=== PATIENT | male | born 1955 | race Caucasian/White ===

== ENCOUNTER 2020-07-21 15:17 | Outpatient (REF) | payer OTHER, SELFPAY | END 2020-07-21 15:18 | disposition home or self-care (01) | LOC: HO.LAB 15:17 | PROVIDERS: PCP Internal Medicine; Visit Provider Internal Medicine | DX: Z20.828 Contact with and (suspected) exposure to other viral communicable diseases (principal) | CPT/HCPCS: C9803; U0003 ==

== ENCOUNTER 2020-09-01 15:03 | Outpatient (REF) | payer OTHER, SELFPAY | END 2020-09-01 15:04 | disposition home or self-care (01) | LOC: HO.LAB 15:03 | PROVIDERS: PCP Internal Medicine; Visit Provider Internal Medicine | DX: Z20.828 Contact with and (suspected) exposure to other viral communicable diseases (principal) | CPT/HCPCS: C9803; U0003 ==

== ENCOUNTER 2023-12-28 13:06 | Outpatient (AMB) | payer MEDICARE, SELFPAY ==
--- NOTE | 2023-12-28 09:53 | MHC.PC.OV ---
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 Requesting colonoscopy, its been over 10 years, also needs a Event Representative for spot on forehead Heel Seat Flap Stapler Required: No Allergies Sulfa (Sulfonamide Antibiotics) Allergy (Intermediate, Verified 12/28/23 13:18) Rash Tobacco use date assessed: 12/28/23 Fall risk assessment: No Falls in past year Dental Screening Dental Screen Date: 12/28/23 Did you have a dental visit in the last 12 months?: Yes Did you have a dental problem in the last 6 months where you did not have access to dental care?: No Was dental information given to patient?: Patient has dentist HPI HPI Comments History of Present Illness Details The patient is a 68 year old male with a past medical history of asthma, allergies, sinusitis presenting to reestablish care Resp: Asthma well afirrmbsmc-akspmilkhhe-tqcyniiotn 100/50 and albuteron prn. Allergies/sinusitis-on zyrtec BPH: On tamsulosin 0.4 cap. Last PSA 3.4. Symptoms good controlled on medication Preventive PFSH Social History (Updated 12/28/23 @ 13:29 by Arlet Feliciano [facility]) Housing: House Patient Tobacco Use Status: Former Tobacco user Cigarette Packs Per Day: 0.5 Years Smoked: 5 in his 20's e-Cigarette/Vaping Use: Never Used Second Hand Smoke Exposure: No Current occupational status: retired and disabled Cognitive needs: No Hearing needs: No Vision needs: Yes (glasses) Questionnaire PHQ-9 Over the last 2 weeks, how often have you been bothered by any of the following problems? 1. Little interest or pleasure in doing things: not at all 2. Feeling down, depressed, or hopeless: not at all 3. Trouble falling or staying asleep, or sleeping too much: not at all 4. Feeling tired or having little energy: not at all 5. Poor appetite or overeating: not at all 6. Feeling bad about yourself - or that you are a failure or have let yourself or your family down: not at all 7. Trouble concentrating on things, such as reading the newspaper or watching television: not at all 8. Moving or speaking so slowly that other people could have noticed. Or the opposite - being so fidgety or restless that you have been moving around a lot more than usual: not at all 9. Thoughts that you would be better off or of hurting yourself in some way: not at all Total score: 0 Depression Screening Interpretation: Negative Depression Screening Done: Yes 19630 - PHQ-9 Billing: Yes Source: Developed by Drs. Lucien Maravilla, Karen Chavarria, Michele Augustine and colleagues, with an educational meena from [employer]. Thrive Questionnaire Date Thrive assessed: 12/28/23 I am a: Patient What is your living situation today?: I have a steady place to live Within the past 12 months, did the food you bought not last and you didn't have the money to get more?: Never true Within the past 12 months, did you worry whether your food would run out before you got money to buy more?: Never true Do you have trouble paying for medicines?: No Do you have trouble getting transportation to medical appointments?: No Do you have trouble paying your heating and electricity bill?: No Do you have trouble taking care of your child, family member or friend?: No Do you have trouble with day-to-day activities such as bathing, preparing meals, shopping, managing finances, etc.?: No Are you currently unemployed and looking for a job?: No Are you interested in more education?: No Please select the resources that you would like help with: None Currently or been in a relationship where the following occur: no concerns reported THRIVE Score: 0 AUDIT C Alcohol Use Questionnaire (AUDIT-C) 1. How often do you have a drink containing alcohol?: Never 3. How often do you have six or more drinks on one occasion?: Never Total Score: 0 IMER-7 AMB Questionnaire IMER-7 Date IMER - 7 assessed: 12/28/23 Feeling nervous, anxious, or on edge: 0 = Not at all Not being able to stop or control worryin = Not at all Worrying too much about different things: 0 = Not at all Trouble relaxin = Not at all Being so restless that it is hard to sit still: 0 = Not at all Becoming easily annoyed or irritable: 0 = Not at all Feeling afraid as if something awful might happen: 0 = Not at all Total IMER-7 score (0-4 normal; 5-9 mild; 10-14 moderate; 15-21 severe): 0 Source: Developed by Drs. Lucien Maravilla, Karen Chavarria, Michele Augustine and colleagues, with an educational meena from [employer]. IMER-7 Assessment Billing IMER-7 Assessment Tool: IMER-7 Assessment 67414 ACT Questionnaire In the past 4 weeks, how much of the time did your asthma keep you from getting as much done at work, school or at home?: None of the time During the past 4 weeks, how often have you had shortness of breath?: Not at all During the past 4 weeks, how often did your asthma symptoms wake you up at night or earlier than usual in the morning?: Not at all During the past 4 weeks, how often have you had to use your rescue inhaler or nebulizer medication?: Once a week or less How would you rate your asthma control during the past 4 weeks?: Well controlled ACT Interpretation: Positive Score: 23 Review of Systems Const Details: ROS CONSTITUTIONAL: Denies weight loss, fever and chills. HEENT: Denies changes in vision and hearing. RESPIRATORY: Denies SOB and cough. CV: Denies palpitations and CP GI: Denies abdominal pain, nausea, vomiting and diarrhea. : Denies dysuria and urinary frequency. MSK: Denies new myalgia and joint pain. SKIN: see HPI NEUROLOGICAL: Denies headache PSYCHIATRIC: Denies recent changes in mood. Physical exam (Primary Care) Vital Signs: Last Vital Signs Temp 98.2 F 12/28/23 13:30 Pulse 78 12/28/23 13:30 Resp 14 12/28/23 13:30 BP 116/76 12/28/23 13:30 Pulse Ox 98 12/28/23 13:30 Oxygen Delivery Method Room Air 12/28/23 13:30 PHYSICAL EXAM: GENERAL: Alert and oriented x 3. NAD EYES: EOMI. Anicteric. HENT: Moist mucous membranes. No scleral icterus. No cervical lymphadenopathy. LUNGS: Clear to auscultation bilaterally. CARDIOVASCULAR: Regular rate and rhythm. No murmur. No JVD. ABDOMEN: Soft, non-tender +bs EXTREMITIES: No edema. Non-tender. SKIN: 2 SK lesions frontal scalp NEUROLOGIC: No focal neurological deficits. CN II-XII grossly intact PSYCHIATRIC: Cooperative. Appropriate mood and affect BMI result Body Mass Index 26.9 Depression Screening Interpretation: Negative Currently or been in a relationship where the following occur: no concerns reported Assessment and Plan Assessment & Plan (1) BPH (benign prostatic hyperplasia): Code(s): N40.0 - Benign prostatic hyperplasia without lower urinary tract symptoms Qualifiers: Lower urinary tract symptom presence: unspecified whether lower urinary tract symptoms present Qualified Code(s): N40.0 - Benign prostatic hyperplasia without lower urinary tract symptoms (2) Asthma: Comment: well controlled with spare use of as needed inhaler Code(s): J45.909 - Unspecified asthma, uncomplicated Qualifiers: Asthma complication type: uncomplicated Asthma persistence: persistent Asthma severity: moderate Qualified Code(s): J45.40 - Moderate persistent asthma, uncomplicated (3) Allergic rhinitis: Code(s): J30.9 - Allergic rhinitis, unspecified Qualifiers: Allergic rhinitis seasonality: seasonal Allergic rhinitis trigger: pollen Qualified Code(s): J30.1 - Allergic rhinitis due to pollen (4) Impaired fasting glucose: Comment: check A1C Code(s): R73.01 - Impaired fasting glucose Orders: Orders Complete Blood Count Auto Diff Today N40.0 - Benign prostatic hyperplasia without lower urinary tract symptoms, R73.01 - Impaired fasting glucose, Z13.0 - Encounter for screening for diseases of the blood and blood-forming organs and certain disorders involving the immune mechanism, Z13.220 - Encounter for screening for lipoid disorders, Z13.228 - Encounter for screening for other metabolic disorders Prostate Specific Antigen Today N40.0 - Benign prostatic hyperplasia without lower urinary tract symptoms, R73.01 - Impaired fasting glucose, Z13.0 - Encounter for screening for diseases of the blood and blood-forming organs and certain disorders involving the immune mechanism, Z13.220 - Encounter for screening for lipoid disorders, Z13.228 - Encounter for screening for other metabolic disorders Comprehensive Met. Panel Today N40.0 - Benign prostatic hyperplasia without lower urinary tract symptoms, R73.01 - Impaired fasting glucose, Z13.0 - Encounter for screening for diseases of the blood and blood-forming organs and certain disorders involving the immune mechanism, Z13.220 - Encounter for screening for lipoid disorders, Z13.228 - Encounter for screening for other metabolic disorders Lipid Panel Today N40.0 - Benign prostatic hyperplasia without lower urinary tract symptoms, R73.01 - Impaired fasting glucose, Z13.0 - Encounter for screening for diseases of the blood and blood-forming organs and certain disorders involving the immune mechanism, Z13.220 - Encounter for screening for lipoid disorders, Z13.228 - Encounter for screening for other metabolic disorders Referrals Gastroenterology Referral Z12.11 - Encounter for screening for malignant neoplasm of colon Dermatology Referral L98.9 - Disorder of the skin and subcutaneous tissue, unspecified Medications: New tamsulosin 0.4 mg PO DAILY 90 caps 3RF Coding Level of Care Code Est Pt Level 4 (83644) Complex EM visit Add On G2211 Diagnoses Benign prostatic hyperplasia, unspecified whether lower urinary tract symptoms present N40.0 Lower urinary tract symptom presence: unspecified whether lower urinary tract symptoms present Moderate persistent asthma without complication J45.40 Asthma complication type: uncomplicated Asthma persistence: persistent Asthma severity: moderate Seasonal allergic rhinitis due to pollen J30.1 Allergic rhinitis seasonality: seasonal Allergic rhinitis trigger: pollen Impaired fasting glucose R73.01 Additional Codes IMER-7 Assessment Billing - IMER-7 Assessment Tool: IMER-7 Assessment [id number] ([id number]) Time Spent (min) 38
[2023-12-28 13:30] VITALS: BP 116/76; PULSE 78; RESP 14; TEMP 36.8; O2SAT 98; BMI 26.9
== END 2023-12-28 14:38 | disposition home or self-care (01) ==
PROVIDERS: PCP Internal Medicine; Visit Provider Internal Medicine
DX: N40.0 Benign prostatic hyperplasia without lower urinary tract symptoms (principal); J45.40 Moderate persistent asthma, uncomplicated; J30.1 Allergic rhinitis due to pollen; R73.01 Impaired fasting glucose
CPT/HCPCS: 99214; G2211

== ENCOUNTER 2024-01-02 07:10 | Outpatient (REF) | payer MEDICARE, SELFPAY ==
[2024-01-02 11:32] LABS: MANUAL DIFF FLAG NO
[2024-01-02 11:40] LABS: Basophils Percent Auto 0.6 % (0-2); Eosinophils Percent Auto 4.6 % (0-4); Hematocrit 40.1 % (42.0-52.0); Hemoglobin 13.7 g/dl (14.0-18.0); Mean Corpuscular HGB Conc 34.2 g/dl (31.0-36.0); Mean Corpuscular Hemoglobin 31.9 pg (27.0-33.0); Mean Corpuscular Volume 93.3 fL (80.0-98.0); Mean Platelet Volume 10.4 fL (9.4-12.4); Platelet Count 265 X10*3/uL (160-400); Red Cell Distribution Width 13.4 % (11.0-16.0); White Blood Count 6.3 X10*3/uL (4.8-10.8)
[2024-01-02 12:13] LABS: Alanine Aminotransferase 26 U/L (0-40); Albumin Level 4.2 g/dL (3.5-5.0); Alkaline Phosphatase 55 U/L (39-117); Anion Gap 12 (12-20); Aspartate Amino Transferase 27 U/L (5-37); Bilirubin Total 0.6 mg/dL (0.0-1.0); Blood Urea Nitrogen 20 mg/dL (9-16); Calcium 9.4 mg/dL (8.4-10.2); Carbon Dioxide 26 mmol/L (22-29); Chloride 108 mmol/L (96-108); Cholesterol 188 mg/dL (<200); Estimated Glomerular Filt Rate > 60; Glucose Random 98 mg/dL (60-115); HDL Cholesterol 46 mg/dL (>40); LDL Cholesterol Calculated 123 mg/dL (<100); Potassium 4.1 mmol/L (3.3-5.1); Sodium 142 mmol/L (135-145); Total Protein 6.8 g/dL (6.5-8.0); Triglycerides 98 mg/dL (<150)
[2024-01-02 12:31] LABS: Prostate Specific Antigen 3.28 ng/mL (<0.05-4.0)
== END 2024-01-02 07:11 | disposition home or self-care (01) ==
LOC: HO.WFDLDS 07:10
PROVIDERS: Visit Provider Internal Medicine
DX: Z13.0 Encounter for screening for diseases of the blood and blood-forming organs and certain disorders involving the immune mechanism (principal); Z13.228 Encounter for screening for other metabolic disorders; R73.01 Impaired fasting glucose; Z13.220 Encounter for screening for lipoid disorders; N40.0 Benign prostatic hyperplasia without lower urinary tract symptoms; Z12.5 Encounter for screening for malignant neoplasm of prostate
CPT/HCPCS: 36415; 80053; 80061; 84153; 85025

== ENCOUNTER 2025-02-16 09:41 | Outpatient (AMB) | payer MEDICARE, SELFPAY ==
--- NOTE | 2025-02-16 09:49 | AM.OFFVISMDC ---
Intake Vital Signs 02/16/25 09:54 Height 5 ft 9 in Weight 180 lb 4 oz BMI 26.6 BP 122/84 Blood Pressure Location Rt brachial Position Sitting Respiration 12 Pulse 73 Pulse Source Pulse Oximeter Temp 97.9 F Temp Source Oral Pulse Oximetry (%) 96 Oxygen Delivery Method Room Air Intake Visit Reasons: CPE Intake Note: Medical wellness visit Grid Operator Required: No Allergies Sulfa (Sulfonamide Antibiotics) Allergy (Intermediate, Verified 02/16/25 09:49) Rash HPI HPI Comments History of Present Illness Details The patient is a 69 year old male with a past medical history of asthma, allergies, sinusitis presenting for MWV Resp: Asthma well uynlbgdrwb-hvxjhdwrsfl-vsdsauzcwl 100/50 and albuterol prn. Allergies/sinusitis-on zyrtec BPH: On tamsulosin 0.4 cap. Last PSA wnl. Symptoms good controlled on medication Follows with Dermatology [place]. Preventive colonoscopy 04/17/2024 [facility] polyp 5 years HRA reviewed No specialists ROS CONSTITUTIONAL: Denies weight loss, fever and chills. HEENT: Denies changes in vision and hearing. RESPIRATORY: Denies SOB and cough. CV: Denies palpitations and CP GI: Denies abdominal pain, nausea, vomiting and diarrhea. : Denies dysuria and urinary frequency. MSK: Denies new myalgia and joint pain. SKIN: Denies rash and pruritus. NEUROLOGICAL: Denies headache PSYCHIATRIC: Denies recent changes in mood. PHYSICAL EXAM: GENERAL: Alert and oriented x 3. NAD EYES: EOMI. Anicteric. HENT: Moist mucous membranes. No scleral icterus. No cervical lymphadenopathy. LUNGS: Clear to auscultation bilaterally. CARDIOVASCULAR: Regular rate and rhythm. No murmur. No JVD. ABDOMEN: Soft, non-tender +bs EXTREMITIES: No edema. Non-tender. SKIN: No rashes or lesions. Warm. NEUROLOGIC: No focal neurological deficits. CN II-XII grossly intact PSYCHIATRIC: Cooperative. Appropriate mood and affect PFSH Surgical History Hx of cholecystectomy Family History Mother HTN (hypertension) Breast cancer Maternal Grandmother Diabetes Social History Housing: House Alcohol intake: current Patient Tobacco Use Status: Former Tobacco user Cigarette Packs Per Day: 0.5 Years Smoked: 5 in his 20's e-Cigarette/Vaping Use: Never Used Second Hand Smoke Exposure: No Use of substances other than those prescribed or required for medical reasons: No Current occupational status: retired and disabled Cognitive needs: No Hearing needs: No Vision needs: Yes (glasses) Questionnaire Medicare Wellness Checkup [age] 65-70 What gender do you identify with?: male During the past 4 weeks, how much have you been bothered by emotional problems such as feeling anxious, depressed, irritable, sad or downhearted, and blue?: not at all During the past 4 weeks, has your physical & emotional health limited your social activities with family, friends, neighbors, or groups?: not at all During the past 4 weeks, how much bodily pain have you generally had?: no pain During the past 4 weeks, was someone available to help you if you needed & wanted help?: yes, as much as I wanted During the past 4 weeks, what was the hardest physical activity you could do for at least 2 minutes?: very heavy Can you get to places out of walking distance without help? (For eg., can you travel alone on buses, taxis or drive your car?): Yes Can you go shopping for groceries or clothes without someone's help?: Yes Can you prepare your own meals?: Yes Can you do your housework without help?: Yes Because of any health problems, do you need the help of another person with your personal care needs such as eating, bathing, dressing or getting around the house?: Yes Can you handle your own money without help?: Yes During the past 4 weeks, how would you rate your health in general?: excellent During the past 4 weeks how have things been going for you?: very well; could hardly better Are you having difficulties driving your car?: yes, often Do you always fasten your seat belt when you are in a car?: yes, usually During past 4 weeks, have you been bothered by the following: never: Falling or dizzy when standing up, Sexual problems?, Trouble eating well?, Teeth or denture problems?, Problems using the telephone? and Tiredness or fatigue? Have you fallen 2 or more times in the past year?: No Are you afraid of falling?: No Are you a smoker?: no During the past 4 weeks, how many drinks of wine, beer, or other alcoholic beverages did you have?: 1 drink or less per week Do you exercise for about 20 minutes 3 or more times a week?: yes, most of the time Have you been given information to help with the following?: yes: Hazards in your house that might hurt you? and yes: Keeping track of your medications? How often do you have trouble taking medicines the way you have been told to take them?: I always take medicine as prescribed How confident are you that you can control & manage most of your health problems?: very confident What is your race?: White Mini Mental State Exam (MMSE) Orientation What is the (year) (season) (date) (day) (month)?: year (2024), season (spring), date, day (01/16) and month Where are we (state) (county) (town or city) (hospital) (floor)?: state ([place]), formerly [facility] ([place]), town or city ([place]), hospital/clinic ([facility]) and floor (first) Registration Name of 3 unrelated objects clearly and slowly, then ask patient to repeat all 3 of them. (1st repeat determines score. Make sure they can repeat all three): object 1 (ball), object 2 (flag) and object 3 (tree) Attention & Calculation (CHOOSE ONE) Ask pt to begin with 100 & count backward by 7. Stop after 5 repeats. If pt cannot ask them to spell the word WORLD backward.: 93, 86, 79, 72 and 65 Recall Ask patient to repeat the 3 items from question #3.: object 1 (ball), object 2 (flag) and object 3 (tree) Language Show patient a wristwatch & ask what it is. Repeat for pencil.: watch and pencil Ask the patient to repeat the phrase 'No ifs, ands, or buts' after you.: correct Ask the patient to 'take a piece of paper with their right hand' 'fold paper in half' 'place paper on floor': take paper in right hand, fold paper in half and place paper on floor Print the sentence 'CLOSE YOUR EYES' on a piece. If patient actually closes eyes then score.: followed written direction Give patient a blank piece of paper & ask to write a sentence. Score if it contains a noun & verb.: sentence contains subject and verb Ask patient to copy figure of intersecting pentagons exactly. Score if all 10 angles & 2 intersects are included.: all 10 angles present & 2 are intersected Score Score: 30 Activity of Daily Living Bathing - sponge bath, tub bath or shower: receives no assistance (gets in/out by self, if usual bathing means Dressing - getting clothes from closets & drawers, including inner/outer garments & fasteners.: gets clothes & gets completely dressed without help Toileting - going to the 'toilet room' for urine/bowel elimination & cleaning self/arranging clothes: goes to toilet room, cleans self, arranges clothes without help Transfer: moves in & out of bed and chair without help (may use support object) Continence: controls urination/bowel movements completely by self Feeding: feeds self without help Total Score: 0 Information obtained from: patient Using telephone: independent Traveling: independent Shopping: independent Preparing meals: independent Housework: independent Taking medicine: independent Managing money: independent PHQ-9 Over the last 2 weeks, how often have you been bothered by any of the following problems? 1. Little interest or pleasure in doing things: not at all 2. Feeling down, depressed, or hopeless: not at all 3. Trouble falling or staying asleep, or sleeping too much: not at all 4. Feeling tired or having little energy: not at all 5. Poor appetite or overeating: not at all 6. Feeling bad about yourself - or that you are a failure or have let yourself or your family down: not at all 7. Trouble concentrating on things, such as reading the newspaper or watching television: not at all 8. Moving or speaking so slowly that other people could have noticed. Or the opposite - being so fidgety or restless that you have been moving around a lot more than usual: not at all 9. Thoughts that you would be better off or of hurting yourself in some way: not at all Total score: 0 Depression Screening Interpretation: Negative Depression Screening Done: Yes 00474 - PHQ-9 Billing: Yes Source: Developed by Drs. Lucien Maravilla, Karen Chavarria, Michele Augustine and colleagues, with an educational meena from [employer]. Physical Exam Vital Signs: Last Vital Signs Temp 97.9 F 02/16/25 09:54 Pulse 73 02/16/25 09:54 Resp 12 02/16/25 09:54 BP 122/84 02/16/25 09:54 Pulse Ox 96 02/16/25 09:54 Oxygen Delivery Method Room Air 02/16/25 09:54 BMI result Body Mass Index 26.6 Assessment & Plan Assessment & Plan (1) Medicare annual wellness visit, subsequent: Code(s): Z00.00 - Encounter for general adult medical examination without abnormal findings (2) Impaired fasting glucose: Comment: check A1C Code(s): R73.01 - Impaired fasting glucose (3) BPH (benign prostatic hyperplasia): Code(s): N40.0 - Benign prostatic hyperplasia without lower urinary tract symptoms Qualifiers: Lower urinary tract symptom presence: unspecified whether lower urinary tract symptoms present Qualified Code(s): N40.0 - Benign prostatic hyperplasia without lower urinary tract symptoms Plan 69 year old male for MWV Interval history reviewed BPH-stable on medications Asthma is stable without exacerbation preventive UTD Orders: Orders Comprehensive Met. Panel 02/17/25 D64.9 - Anemia, unspecified, N40.0 - Benign prostatic hyperplasia without lower urinary tract symptoms, R73.01 - Impaired fasting glucose, Z13.220 - Encounter for screening for lipoid disorders, Z13.228 - Encounter for screening for other metabolic disorders Prostate Specific Antigen 02/17/25 D64.9 - Anemia, unspecified, N40.0 - Benign prostatic hyperplasia without lower urinary tract symptoms, R73.01 - Impaired fasting glucose, Z13.220 - Encounter for screening for lipoid disorders, Z13.228 - Encounter for screening for other metabolic disorders IRON PROFILE 02/17/25 D64.9 - Anemia, unspecified, N40.0 - Benign prostatic hyperplasia without lower urinary tract symptoms, R73.01 - Impaired fasting glucose, Z13.220 - Encounter for screening for lipoid disorders, Z13.228 - Encounter for screening for other metabolic disorders Hemoglobin A1c 02/17/25 R73.01 - Impaired fasting glucose Complete Blood Count Auto Diff 02/17/25 D64.9 - Anemia, unspecified, N40.0 - Benign prostatic hyperplasia without lower urinary tract symptoms, R73.01 - Impaired fasting glucose, Z13.220 - Encounter for screening for lipoid disorders, Z13.228 - Encounter for screening for other metabolic disorders Lipid Panel 02/17/25 D64.9 - Anemia, unspecified, N40.0 - Benign prostatic hyperplasia without lower urinary tract symptoms, R73.01 - Impaired fasting glucose, Z13.220 - Encounter for screening for lipoid disorders, Z13.228 - Encounter for screening for other metabolic disorders Vitamin B12 and Folate 02/17/25 D64.9 - Anemia, unspecified, N40.0 - Benign prostatic hyperplasia without lower urinary tract symptoms, R73.01 - Impaired fasting glucose, Z13.220 - Encounter for screening for lipoid disorders, Z13.228 - Encounter for screening for other metabolic disorders Medications: New fluticasone propion-salmeterol 100-50 mcg/dose 1 ea inhalation BID 3 ea 0RF Changed From albuterol sulfate 90 mcg/actuation inhalation To albuterol sulfate 90 mcg/actuation 2 inhalations inhalation Q4-6H 2 ea 0RF Refilled tamsulosin 0.4 mg PO DAILY 90 caps 3RF Quality Reporting (2019) Fall Risk Screening ([facility] 139) Last assessed Fall Risk: 02/16/25 Fall risk assessment: No Falls in past year Depression/Bipolar (159/160/161/177) PHQ-9: Total score: 0 Coding Level of Care Code Medicare Subsequent (G0439) Diagnoses Medicare annual wellness visit, subsequent Z00.00 Impaired fasting glucose R73.01 Benign prostatic hyperplasia, unspecified whether lower urinary tract symptoms present N40.0 Lower urinary tract symptom presence: unspecified whether lower urinary tract symptoms present Additional Codes PHQ-9 - 23314 - PHQ-9 Billing: Yes ([id number])
[2025-02-16 09:54] VITALS: BP 122/84; PULSE 73; RESP 12; TEMP 36.6; O2SAT 96; BMI 26.6
== END 2025-02-16 10:23 | disposition home or self-care (01) ==
LOC: HO.HMCFM 09:42
PROVIDERS: PCP Internal Medicine; Visit Provider Internal Medicine
DX: Z00.00 Encounter for general adult medical examination without abnormal findings (principal); R73.01 Impaired fasting glucose; N40.0 Benign prostatic hyperplasia without lower urinary tract symptoms

== ENCOUNTER → 2025-02-16 09:41 | Outpatient (BNVA) | payer MEDICARE, SELFPAY | PROVIDERS: PCP Internal Medicine; Visit Provider Internal Medicine | DX: Z00.00 Encounter for general adult medical examination without abnormal findings (principal); R73.01 Impaired fasting glucose; N40.0 Benign prostatic hyperplasia without lower urinary tract symptoms; J45.909 Unspecified asthma, uncomplicated | CPT/HCPCS: 96127 ==

== ENCOUNTER 2025-02-17 08:09 | Outpatient (REF) | payer MEDICARE, SELFPAY ==
--- OUTSIDE RECORDS SUMMARY | 2025-02-17 08:13 | XMS_ITS | Clinical Summary ---
Author Organization [facility] Address [address] [place] [address] Phone Care Team Providers Care Developer Designer Name Role Phone Umm Ly MD Primary Care Provider [phone] Allergies Active Allergy Reactions Criticality Noted Date Comments Sulfa (Sulfonamide Antibiotics) Rash Medium 02/2024 Medications albuterol HFA (PROAIR HFA ; PROVENTIL HFA ; VENTOLIN HFA) 90 mcg/actuation inhaler Inhale 2 puffs by mouth. 9 Active calcium carbonate-vitam in D3 600 mg-5 mcg (200 unit) per tablet Take by mouth. Acti ve fluticasone propion-salmete roL (ADVAIR DISKUS) 100-50 mcg/dose diskus inhaler Inhale 1 puff by mouth. 9 Active cholecalciferol (VITAMIN D-3) 25 mcg (1,000 unit) capsule Take by mouth. A ctive fluticasone propionate (Flonase Allergy Relief) 50 mcg/actuation nasal spray Administer into affected nostril(s). 0 Active omega-3 acid ethyl esters (LOVAZA) 1 gram capsule Take by mouth. Activ e Surgical History Surgery Date Site/Laterality Comments WISDOM TOOTH EXTRACTION PROCEDURE: HISTORICAL WISDOM TEETH EXTRACTION OTHER SURGICAL HISTORY age 4 PROCEDURE: [place] STRABISMUS PREVIOUS EYE X INVOLVE EO MUSC; COMMENT: for stabismis OTHER SURGICAL HISTORY 02/11/13 PROCEDURE: COLONOSCOPY, SURGICAL; COMMENT: nl HAND SURGERY 08/2014 PROCEDURE: HISTORICAL HAND SURGERY; COMMENT: R 5th finger for duputreyns contracture, [facility], Dr Zuluaga HAND SURGERY 02/2017 Left PROCEDURE: HISTORICAL HAND SURGERY; COMMENT: release for 2 4th digit duputreyns contracture at [facility] [place] Medical History Medical History Date Comments Asthma DX:Asthma Seasonal allergies DX:Seasonal a llergies Nasal polyps DX:Nasal polyps Dupuytren's contracture of both hands DX:Dupuytren's contracture of both hands; COMMENT: Dr. Zuluaga Family History Medical History Relation Name Comments Other: Diabetes mellitus type 2 Maternal Grandfather Relation Name Status Comments Brother 1 Alive healthy Brother 2 Alive healthy Daughter Alive healthy Father (Age 78) dementia - parkinsons; alcohol Maternal Grandfather (Age 80) DM Maternal Grandmother (Age 60s) U K Mother Alive prediabetes, br east cancer age 88, macular degeneration Paternal Grandfather Young Paternal Grandmother (Age 93) He art, TIAs Sister Alive healthy Son Alive healthy Uncle (Age 94) Prostate c ancer in 80s Social History Tobacco Use Types Packs/Day Years Used Date Smoking Tobacco: Former Cigarettes Q uit: 03/14/1979 Smokeless Tobacco: Never Alcohol Use Standard Drinks/Week Comments Yes 0 (1 standard drink = 0.6 oz pur e alcohol) Interpersonal Safety Answer Date Record ed Physical Abuse 07/09/2024 Verbal Abuse 07/09/2024 Sex and Gender Information Value Date Recorded Sex Assigned at Not on file Legal Sex Male 9:06 PM EST Gender Identity Not on file Sexual Orientation Not on file Obstetrics History Last Filed Vital Signs Vital Sign Reading Time Taken Comments Blood Pressure 103/76 07/09/2024 10:26 AM EST Pulse 66 07/09/2024 10:26 AM EST Temperature 36.1 ??C (96.9 ??F) 07/09/2024 10:[address] Respiratory Rate 17 07/09/2024 10:26 AM EST Oxygen Saturation 97% 07/09/2024 10:26 AM EST Inhaled Oxygen Concentration - - Weight 77.1 kg (170 lb) 07/09/2024 9:16 AM EST Height 175.3 cm (5' 9 ) 07/09/2024 9:16 AM EST Body Mass Index 25.1 07/09/2024 9:16 AM EST Plan of Treatment Health Maintenance Due Date Last Done Comments IPV Vaccines (2 of 3 - Adult catch-up series) 01/12/2009 12/15/2008 DTaP,Tdap,and Td Vaccines (3 - Td or Tdap) 10/23/2022 10/23/2012, 12/15/2008 Abdominal Aortic Aneurysm (AAA) Screen 10/02/2023 Cholesterol Screening (Lipid Panel) 10/02/2023 Depression Screening 10/02/2023 Hepatitis C Screening 10/02/2023 Medicare Annual Wellness Visit 10/02/2023 Social Influencers of Health Screening 10/02/2023 COVID-19 Vaccine ( season) 2024 07/30/2023, 06/14/2021, 12/07/2020, Additional history exists Influenza Vaccine (Season Ended) 2025 08/03/2022, 08/01/2021, 06/13/2018, Additional history exists Falls Risk Assessment 07/09/2025 07/09/2024 Colorectal Cancer Screening: Colonoscopy 07/09/2034 07/09/2024 Hepatitis A Vaccines Aged Out 07/09/2009, 12/16/19 09 No longer eligible based on patient's age to complete this topic Zoster Vaccines Completed 01/10/2022, 10/04, 06/06/2017 Pneumococcal Vaccine: 50+ Years Completed 08/03/2022, 02/19/2015, 10/29/2013 RSV Immunization Adult Patients Completed 07/30/2023 HIB Vaccines Aged Out No longer eligi ble based on patient's age to complete this topic HPV Vaccines Aged Out No longer eligi ble based on patient's age to complete this topic Hepatitis B Vaccines Aged Out No long er eligible based on patient's age to complete this topic MMR Vaccines Aged Out No longer eligi ble based on patient's age to complete this topic Meningococcal ACWY Vaccine Aged Out N o longer eligible based on patient's age to complete this topic Meningococcal B Vaccine Aged Out No l onger eligible based on patient's age to complete this topic RSV Immunization Patients Under 20 months Aged Out No longer eligible based on patient's age to complete this topic Varicella Vaccines Aged Out No longer eligible based on patient's age to complete this topic Procedures Procedure Name Priority Date/Time Associated Diagnosis Comments COLONOSCOPY Routine 07/09/2024 10:05 AM EST Encounter for screening for malignant neoplasm of colon from Last 3 Months or Most Recently Relevant to Health Maintenance Results * COLONOSCOPY Anesthesia - MAC; [facility] ENDOSCOPY (07/09/2024 10:05 AM EST) Anatomical Region Laterality Modality Endoscopy 07/09/2024 9:29 AM EST Narrative 07/09/2024 10:06 AM EST [facility] GI Patient Name: Arnold Gonzalez ? Procedure Date: 07/09/2024 9:29 AM ? Date of : 1955 ?Age: 68 Room: ROOM 15 ? Gender: Male Note Status: Finalized ?Attending MD: Shelton East MD, Procedure Date No Time: 07/09/2024 ? Procedure: ? Colonoscopy Indications: ? Screening for colorectal malignant neoplasm Providers: ? Shelton East MD Referring MD: ?Shelton East MD Medicines: ? Monitored Anesthesia Care Complications: ? No immediate complications. Estimated Blood Loss: ? Estimated blood loss: none. Procedure: ? Pre-Anesthesia Assessment: ? - ASA Grade Assessment: II - A patient with mild ? systemic disease. ? - After reviewing the risks and benefits, the patient ? was deemed in satisfactory condition to undergo the ? procedure. ? After I obtained informed consent, the scope was ? passed under direct vision. Throughout the procedure, ? the patient's blood pressure, pulse, and oxygen ? saturations were monitored continuously.The ? Colonoscope was introduced through the anus and ? advanced to the cecum, identified by appendiceal ? orifice and ileocecal valve. The colonoscopy was ? performed without difficulty. The patient tolerated ? the procedure well. The quality of the bowel ? preparation was good. Findings: ?A 5 mm polyp was found at 30 cm proximal to the anus. ? The polyp was sessile. The polyp was removed with a ? cold snare. Resection and retrieval were complete. ? Estimated blood loss was minimal. ? Non-bleeding internal hemorrhoids were found during ? retroflexion. The hemorrhoids were small. ? The exam was otherwise without abnormality on direct ? and retroflexion views. Impression: ?- One 5 mm polyp at 30 cm proximal to the anus, ? removed with a cold snare. Resected and retrieved. ? - Non-bleeding internal hemorrhoids. ? - The examination was otherwise normal on direct and ? retroflexion views. Recommendation: ?- Discharge patient to home. ? - Resume previous diet. ? - Continue present medications. ? - Await pathology results. ? - Repeat colonoscopy for surveillance based on ? pathology results. ? - Return to GI office PRN. Shelton East MD Shelton East MD 07/09/2024 10:06:12 AM This report has been signed electronically.Shelton East MD Number of Addenda: 0 Note Initiated On: 07/09/2024 9:29 AM Scope In: Scope Out: ? Endoscopy Department at [facility] - [address] [place] [address], ? [place] [id number] Procedure Note Shelton East MD - 07/09/2024 [facility] GI Patient Name: Arnold Gonzalez Procedure Date: 07/09/2024 9:29 AM Date of : 1955 Age: 68 Room: ROOM 15 Gender: Male Note Status: Finalized Attending MD: Shelton East MD, Procedure Date No Time: 07/09/2024 Procedure: Colonoscopy Indications: Screening for colorectal malignant neoplasm Providers: Shelton East MD Referring MD: Shelton East MD Medicines: Monitored Anesthesia Care Complications: No immediate complications. Estimated Blood Loss: Estimated blood loss: none. Procedure: Pre-Anesthesia Assessment: - ASA Grade Assessment: II - A patient with mild systemic disease. - After reviewing the risks and benefits, thepatient was deemed in satisfactory condition to undergo the procedure. After I obtained informed consent, the scope was passed under direct vision. Throughout theprocedure, the patient's blood pressure, pulse, and oxygen saturations were monitored continuously.The Colonoscope was introduced through the anus and advanced to the cecum, identified by appendiceal orifice and ileocecal valve. The colonoscopy was performed without difficulty. The patient tolerated the procedure well. The quality of the bowel preparation was good. Findings: A 5 mm polyp was found at 30 cm proximal to theanus. The polyp was sessile. The polyp was removed with a cold snare. Resection and retrieval were complete. Estimated blood loss was minimal. Non-bleeding internal hemorrhoids were found during retroflexion. The hemorrhoids were small. The exam was otherwise without abnormality ondirect and retroflexion views. Impression: - One 5 mm polyp at 30 cm proximal to the anus, removed with a cold snare. Resected andretrieved. - Non-bleeding internal hemorrhoids. - The examination was otherwise normal on directand retroflexion views. Recommendation: - Discharge patient to home. - Resume previous diet. - Continue present medications. - Await pathology results. - Repeat colonoscopy for surveillance based on pathology results. - Return to GI office PRN. Shelton East MD Shelton East MD 07/09/2024 10:06:12 AM This report has been signed electronically.Shelton East MD Number of Addenda: 0 Note Initiated On: 07/09/2024 9:29 AM Scope In: Scope Out: Endoscopy Department at [facility] - [address] [place] [id number] Shelton East MD GI~PROCEDURE ORDERABLES Final Result from Last 3 Months or Most Recently Relevant to Health Maintenance Insurance MEDICARE [facility] Care Teams Developer Designer Relationship Specialty Start Date End Date Umm Ly MD PCP - General Internal Medicine 07/08/24
[2025-02-17 11:49] LABS: MANUAL DIFF FLAG NO
[2025-02-17 11:53] LABS: Basophils Percent Auto 0.5 % (0-2); Eosinophils Absolute Auto 0.2 X10*3/uL (0.0-0.4); Eosinophils Percent Auto 2.9 % (0-4); Hematocrit 43.4 % (42.0-52.0); Hemoglobin 14.4 g/dl (14.0-18.0); Imm Gran Abs Auto 0.01 X10*3/uL (0.00-0.03); Imm Gran Pct Auto 0.2 % (0.0-0.4); Lymphocytes Absolute Auto 2.3 X10*3/uL (1.2-4.9); Mean Corpuscular HGB Conc 33.2 g/dl (31.0-36.0); Mean Corpuscular Hemoglobin 31.4 pg (27.0-33.0); Mean Corpuscular Volume 94.6 fL (80.0-98.0); Mean Platelet Volume 10.3 fL (9.4-12.4); Monocytes Absolute Auto 0.6 X10*3/uL (0.1-1.2); Monocytes Percent Auto 8.8 % (2-11); Neutrophils Absolute Auto 3.4 x10*3/uL (2.0-8.3); Neutrophils Percent Auto 52.6 % (45-73); Platelet Count 274 X10*3/uL (160-400); Red Blood Count 4.59 X10*6/uL (4.60-5.80); Red Cell Distribution Width 13.2 % (11.0-16.0); White Blood Count 6.5 X10*3/uL (4.8-10.8)
[2025-02-17 12:11] LABS: Alanine Aminotransferase 29 U/L (0-40); Albumin Level 4.3 g/dL (3.5-5.0); Alkaline Phosphatase 55 U/L (39-117); Anion Gap 10 (12-20); Aspartate Amino Transferase 32 U/L (5-37); Bilirubin Total 0.4 mg/dL (0.0-1.0); Blood Urea Nitrogen 20 mg/dL (9-16); Calcium 9.2 mg/dL (8.4-10.2); Carbon Dioxide 26 mmol/L (22-29); Chloride 110 mmol/L (96-108); Cholesterol 174 mg/dL (<200); Estimated Glomerular Filt Rate > 60; Glucose Random 97 mg/dL (60-115); HDL Cholesterol 51 mg/dL (>40); Iron 91 mcg/dL (45-160); LDL Cholesterol Calculated 110 mg/dL (<100); Percent Iron Saturation 30 % (15-50); Sodium 142 mmol/L (135-145); Total Iron Binding Capacity 304 mcg/dL (228-428); Total Protein 6.8 g/dL (6.5-8.0); Triglycerides 69 mg/dL (<150); Unsaturated Iron Binding 213 ug/dL
[2025-02-17 12:13] LABS: Estimated Average Glucose 105 mg/dL; Hemoglobin A1c % 5.3 % (<6.0); Total Hemoglobin (HGBA1C) 3740.1619 umol/L
[2025-02-17 12:43] LABS: Folate 12.6 ng/mL (> or = 4.0); Prostate Specific Antigen 3.31 ng/mL (<0.05-4.0); Vitamin B12 473 pg/mL (200-900)
== END 2025-02-17 08:10 | disposition home or self-care (01) ==
LOC: HO.WFDLDS 08:09
PROVIDERS: Visit Provider Internal Medicine
DX: R73.01 Impaired fasting glucose (principal); Z13.220 Encounter for screening for lipoid disorders; N40.0 Benign prostatic hyperplasia without lower urinary tract symptoms; Z13.228 Encounter for screening for other metabolic disorders; D64.9 Anemia, unspecified
CPT/HCPCS: 36415; 80053; 80061; 82607; 82746; 83036; 83540; 84153; 85025